=== PATIENT | female | born 1975 | race American Indian/Alaskan Native ===

== ENCOUNTER 2023-01-08 21:43 | Emergency (ER) | payer MEDICAID ==
[2023-01-08] MEDS ORDERED: Ketorolac 10 MG Tab PO ONE (22:31)
[2023-01-08] MEDS ORDERED: Cyclobenzaprine 10 MG Tab PO ONE (22:31)
== END 2023-01-08 23:01 ==
LOC: JP.ED 21:43
DX: G89.29 Other chronic pain (principal); M54.2 Cervicalgia; M54.50 Low back pain, unspecified; J45.909 Unspecified asthma, uncomplicated; E66.9 Obesity, unspecified; Z68.36 Body mass index [BMI] 36.0-36.9, adult; Z86.16 Personal history of COVID-19; Z88.8 Allergy status to other drugs, medicaments and biological substances; Z91.048 Other nonmedicinal substance allergy status
CPT/HCPCS: 99283; A9270